=== PATIENT | male | born 1960 | race Caucasian/White ===

== ENCOUNTER 2018-03-01 20:59 | Emergency (ER) | payer BC ==
[~2018-03-01] VITALS: Ht 180.3 cm; Wt 83.9 kg
--- NOTE | 2018-03-01 21:40 | NUR ---
BIBSELF C/O "FLU LIKE" SYMPTOMS X 3 WEEKS W/ FEVER AND CHILLS X4 DAYS. PT IS ALSO C/O CONSTIPATION X 1 WEEK W/ +N/V,-D. NO S/S OF ACUTE DISTRESS NOTED. RR EVEN AND UNLABORED. PT PLACED ON MONITOR AND POX. PT SAFETY AND COMFORT MEASURES IN PLACE. BEDSIDE FOR EVAL
[2018-03-01] MEDS ORDERED: ONDANSETRON HCL/PF 4 MG/2 ML VIAL ONE (21:49)
[2018-03-01] MEDS ORDERED: ACETAMINOPHEN ES 500 MG TABLET ONE (21:49)
[2018-03-01] MEDS ORDERED: ONDANSETRON HCL/PF 4 MG/2 ML VIAL IVP ONE (22:00)
[2018-03-01] MEDS ORDERED: ACETAMINOPHEN 325 MG TABLET PO ONE (22:00)
[2018-03-01] MEDS ORDERED: IV NS 0.9% 1,000 ML BAG IV ONE ×2 (22:00→23:30)
--- NOTE | 2018-03-01 22:00 | NUR ---
[employer] HOLLI BRISCOE TO COLLECT BLOOD AND URINE SPECIMENS.
[2018-03-01 22:14] LABS: BASOPHILS % (AUTO) 0.2 % (0.0-2.0); HEMATOCRIT 40 % (39-51); HEMOGLOBIN 14.1 g/dL (13.5-17.5); LYMPHOCYTES # (AUTO) 0.5 /CMM (0.8-4.8); LYMPHOCYTES % (AUTO) 5.8 % (20.0-44.0); MEAN CORPUSCULAR HGB CONC 35 g/dl (31.0-36.0); MEAN CORPUSCULAR VOLUME 87 fL (80-96); MONOCYTES # (AUTO) 1.1 /CMM (0.1-1.30); MONOCYTES % (AUTO) 12.6 % (2.0-12.0); NEUTROPHILS # (AUTO) 7.1 /CMM (1.8-8.9); NEUTROPHILS % (AUTO) 81.4 % (43.0-81.0); PLATELET COUNT (AUTO) 253 /CMM (150-450); WHITE BLOOD COUNT (AUTO) 8.7 K/uL (4.3-11.0)
[2018-03-01 22:24] LABS: APPEARANCE,URINE CLEAR (CLEAR); BILIRUBIN,URINE NEGATIVE (NEGATIVE); BLOOD, URINE 1+ Ery/uL (NEGATIVE); COLOR,URINE YELLOW (YELLOW); KETONES,URINE NEGATIVE (NEGATIVE); LEUKOCYTE ESTERASE ,URINE NEGATIVE (NEGATIVE); NITRITE, URINE NEGATIVE (NEGATIVE); PROTEIN,URINE 1+ mg/dl (NEGATIVE); UGLUCOSE NEGATIVE (NEGATIVE); UROBILINOGEN,URINE 0.2 EU/dL (0.2)
[2018-03-01 22:32] LABS: ALBUMIN 3.6 g/dL (3.4-5.0); BILIRUBIN,DIRECT 0.1 mg/dL (0.0-0.2); BILIRUBIN,TOTAL 0.5 mg/dL (0.2-1.0); CALCIUM, SERUM 8.7 mg/dL (8.5-10.1); CREATININE 1.4 mg/dL (0.6-1.3); POTASSIUM 3.4 mmol/L (3.5-5.1)
[2018-03-01 23:02] LABS: BACTERIA,URINE None seen /HPF (None Seen); MUCUS,URINE Few /LPF (None Seen); RBC,URINE 0-2 /HPF (0-2); SQUAMOUS EPITHELIAL CELL,UR Few /HPF (None Seen); WBC,URINE 0-2 /HPF (0-3)
[2018-03-01 23:03] LABS: MONOTEST NEGATIVE (NEGATIVE)
[2018-03-01] MEDS ORDERED: POTASSIUM CHLORIDE 20 MEQ TAB.PRT.SR PO ONE ×2 (23:30→23:39)
--- NOTE | 2018-03-02 00:24 | NUR ---
Patient discharged to home in stable condition. Written and verbal after care instructions given. Patient verbalizes understanding of instruction.IV removed. Catheter intact and site benign. Pressure and 4x4 applied to site. No bleeding noted.
[2018-03-02 00:25] VITALS: BP 128/69
== END 2018-03-02 00:26 | disposition home or self-care (01) ==
LOC: ER 21:01
DX: J02.9 Acute pharyngitis, unspecified (principal); E86.0 Dehydration; E87.6 Hypokalemia; R74.8 Abnormal levels of other serum enzymes; R11.0 Nausea; F41.9 Anxiety disorder, unspecified; Z60.2 Problems related to living alone
CPT/HCPCS: 36415; 71045-TC; 80048-TC; 80076-TC; 81000-TC; 83605-TC; 85025-TC; 86308-TC; 86403-TC; 87040-TC; 87070-TC; 87086-TC; 87400; A4606; J2405; J7030; Z7610

== ENCOUNTER 2018-03-02 09:12 | Emergency (ER) | payer BC ==
[~2018-03-02] VITALS: Ht 180.3 cm; Wt 83.9 kg
--- NOTE | 2018-03-02 09:25 | NUR ---
seen and eval by ED MD
[2018-03-02] MEDS ORDERED: IBUPROFEN 600 MG TABLET PO ONE (09:28)
[2018-03-02] MEDS ORDERED: ACETAMINOPHEN ES 500 MG TABLET ONE (09:30)
[2018-03-02] MEDS ORDERED: AMOX/CLAVULANATE 250 MG TABLET ONE (09:48)
[2018-03-02] MEDS ORDERED: AMOXICILLIN TRIHYDRATE 250 MG CAPSULE PO ONE (10:00)
[2018-03-02] MEDS ORDERED: ACETAMINOPHEN SUSP 80 MG/0.8 ML BOTTLE PO ONE (10:00)
[2018-03-02 10:08] VITALS: BP 119/75
== END 2018-03-02 10:09 | disposition home or self-care (01) ==
LOC: ER 09:13
DX: J02.9 Acute pharyngitis, unspecified (principal); F41.9 Anxiety disorder, unspecified; Z60.2 Problems related to living alone; Z85.46 Personal history of malignant neoplasm of prostate
CPT/HCPCS: A4606; Z7610

== ENCOUNTER 2021-03-03 15:39 | Emergency (ER) | payer BC ==
[~2021-03-03] VITALS: Ht 177.8 cm; Wt 83.9 kg
--- NOTE | 2021-03-03 15:39 | NUR ---
[id number] C/O LEFT FLANK PAIN STARTED AT 1330 TODAY THAT RADIATES TO LEFT THIGH. VITALS ARE WITHIN NORMAL LIMITS. BREATHING IS EVEN AND UNLABORED. IV WAS ESTABLISH R AC 20G, LABS WERE DRAWN AND COLLECTED AT BEDSIDE
[2021-03-03] MEDS ORDERED: IV NS 0.9% 1,000 ML BAG IV ONE (16:00)
--- NOTE | 2021-03-03 16:14 | NUR ---
US TECH AT THE BEDSIDE
--- NOTE | 2021-03-03 16:18 | NUR ---
URINE SENT TO LAB
[2021-03-03 16:50] LABS: BASOPHILS # (AUTO) 0.1 K/uL (0.0-0.2); BASOPHILS % (AUTO) 0.7 % (0.0-2.0); EOSINOPHILS % (AUTO) 0.4 % (0.0-6.0); HEMATOCRIT 42 % (39-51); HEMOGLOBIN 14.1 g/dL (13.5-17.5); LYMPHOCYTES # (AUTO) 1.1 K/uL (0.8-4.8); LYMPHOCYTES % (AUTO) 9.2 % (20.0-44.0); MEAN CORPUSCULAR HGB CONC 33 g/dl (31.0-36.0); MEAN CORPUSCULAR VOLUME 88 fL (80-96); MONOCYTES # (AUTO) 0.6 K/uL (0.1-1.30); MONOCYTES % (AUTO) 5.3 % (2.0-12.0); NEUTROPHILS # (AUTO) 9.7 K/uL (1.8-8.9); NEUTROPHILS % (AUTO) 84.4 % (43.0-81.0); PLATELET COUNT (AUTO) 328 K/uL (150-450); RED BLOOD CELL COUNT(AUTO) 4.78 MIL/uL (4.5-6.0); WHITE BLOOD COUNT (AUTO) 11.5 K/uL (4.3-11.0)
[2021-03-03 16:55] LABS: BILIRUBIN,URINE SMALL (NEGATIVE); COLOR,URINE YELLOW (YELLOW); LEUKOCYTE ESTERASE ,URINE NEGATIVE (NEGATIVE); NITRITE, URINE NEGATIVE (NEGATIVE); PH,URINE 5.5 (5.0-8.0); PROTEIN,URINE 30 mg/dl (NEGATIVE); UGLUCOSE NEGATIVE (NEGATIVE); UROBILINOGEN,URINE 0.2 EU/dL (0.2)
[2021-03-03 17:00] LABS: CALCIUM, SERUM 8.6 mg/dL (8.5-10.1); CREATININE 1.3 mg/dL (0.6-1.3); POTASSIUM 3.7 mmol/L (3.5-5.1)
[2021-03-03 17:04] LABS: RBC,URINE 81-100 /HPF (0-2)
[2021-03-03 17:05] LABS: BACTERIA,URINE 1+ /HPF (None Seen); SQUAMOUS EPITHELIAL CELL,UR 0-2 /HPF (None Seen)
[2021-03-03 17:05] LABS: ALBUMIN 4.2 g/dL (3.4-5.0); BILIRUBIN,DIRECT 0.1 mg/dL (0.0-0.2); BILIRUBIN,TOTAL 0.4 mg/dL (0.2-1.0)
[2021-03-03] MEDS ORDERED: ONDANSETRON HCL/PF 4 MG/2 ML VIAL ONE ×2 (17:16→20:07)
[2021-03-03] MEDS ORDERED: MORPHINE SULFATE INJ 4 MG/ML DISP.SYRIN ONE (17:16)
[2021-03-03] MEDS ORDERED: TAMSULOSIN 0.4 MG CAP.SR.24H ONE (17:17)
[2021-03-03] MEDS ORDERED: TAMSULOSIN 0.4 MG CAP.SR.24H PO ONE (17:30)
[2021-03-03] MEDS ORDERED: MORPHINE SULFATE INJ 2 MG/ML DISP.SYRIN IV ONE (17:30)
[2021-03-03] MEDS ORDERED: ONDANSETRON HCL/PF 4 MG/2 ML VIAL IVP ONE (17:30)
[2021-03-03] MEDS ORDERED: SULF1TAB48 PO (17:31)
[2021-03-03] MEDS ORDERED: TAMS-12 PO (17:31)
[2021-03-03] MEDS ORDERED: HYDR-3972 PO (17:31)
--- NOTE | 2021-03-03 18:16 | NUR ---
PT TAKEN TO CT
--- NOTE | 2021-03-03 19:31 | NUR ---
CALLED OFFICE OF [facility], UROLOGY, PAGED THE ONCALL DR HERZOG
[2021-03-03] MEDS ORDERED: ONDA4TAB5 PO (19:59)
[2021-03-03] MEDS ORDERED: KETOROLAC TROMETHAMINE 15 MG/ML VIAL ONE (20:07)
[2021-03-03] MEDS ORDERED: ONDANSETRON HCL/PF 4 MG/2 ML VIAL IV ONE (20:30)
[2021-03-03] MEDS ORDERED: KETOROLAC TROMETHAMINE INJ 30 MG/ML VIAL IV ONE (20:30)
--- NOTE | 2021-03-03 20:52 | NUR ---
Patient discharged to home in stable condition. Written and verbal after care instructions given. Patient verbalizes understanding of instruction. PT ambulatory with a steady gait.
[2021-03-03 20:53] VITALS: BP 124/85
== END 2021-03-03 20:53 | disposition home or self-care (01) ==
LOC: ER 16:03
DX: R10.9 Unspecified abdominal pain (principal); R31.9 Hematuria, unspecified; Z85.46 Personal history of malignant neoplasm of prostate; Z87.442 Personal history of urinary calculi; Z79.899 Other long term (current) drug therapy
CPT/HCPCS: 36415; 74176; 76770; 80048; 80076; 81001; 83690; 85025; 87086; 96361; 96374; 96375; 96376; 99285; J1885; J2270; J2405 ×2; J7030

== ENCOUNTER 2024-10-03 04:41 | Emergency (ER) | payer BC ==
[~2024-10-03] VITALS: Ht 177.8 cm; Wt 85.7 kg
[~2024-10-03 04:41] MED LIST: HYDR-3972 PO; ONDA4TAB5 PO; SULF1TAB48 PO; TAMS-12 PO
[2024-10-03 05:28] LABS: PLATELET COUNT (AUTO) 342 K/uL (150-450); RED BLOOD CELL COUNT(AUTO) 5.39 MIL/uL (4.5-6.0); RED CELL DISTRIBUTION WIDTH 13.5 % (11.5-15.0); WHITE BLOOD COUNT (AUTO) 11.4 K/uL (4.3-11.0)
[2024-10-03 05:41] LABS: CALCIUM, SERUM 9.5 mg/dL (8.5-10.1); SODIUM SERUM 142 mmol/L (136-145); UREA NITROGEN, BLOOD 20 mg/dL (7-18)
[2024-10-03 05:42] LABS: ASPARTATE AMINOTRANSFERASE 24 U/L (15-37); CREATININE 1.1 mg/dL (0.6-1.3); INR 1.03 (0.91-1.10); TOTAL PROTEIN, SERUM 8.6 g/dL (6.4-8.2)
[2024-10-03 07:19] VITALS: BP 114/89; TEMP 98; O2SAT 98
== END 2024-10-03 07:19 | disposition home or self-care (01) ==
LOC: ER 04:52
DX: F41.1 Generalized anxiety disorder (principal); F43.0 Acute stress reaction; R07.9 Chest pain, unspecified; R00.2 Palpitations; Z85.46 Personal history of malignant neoplasm of prostate; Z60.2 Problems related to living alone
CPT/HCPCS: 36415; 71045-TC; 80048-TC; 80076-TC; 84484-TC; 85025-TC; 85730-TC